=== PATIENT | male | born 1985 | race Two or more races ===

== ENCOUNTER 2020-02-12 08:24 | Emergency (ER) | payer SELFPAY ==
[~2020-02-12] VITALS: Ht 154.9 cm; Wt 72.6 kg
[2020-02-12 08:44] VITALS: BP 128/68
[2020-02-12] MEDS ORDERED: IBUPROFEN600 M1 ORAL (08:53)
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
[2020-02-12 09:01] VITALS: BP 125/74
== END 2020-02-12 09:01 | disposition home or self-care (01) ==
LOC: EMR 08:40
DX: S51.812A Laceration without foreign body of left forearm, initial encounter (principal); W26.0XXA Contact with knife, initial encounter; Y93.9 Activity, unspecified; Y92.9 Unspecified place or not applicable
CPT/HCPCS: 99282